=== PATIENT | female | born 1980 | race Caucasian/White ===

== ENCOUNTER 2019-05-15 12:45 | Outpatient (CLI) | payer OTHER ==
--- NOTE | 2019-05-15 14:39 | MRI Report ---
Reason: CERVICALGIA Procedure Date: 05/15/2019 Accession Number: [id number] Procedure: MRI - Cervical Spine W/O CPT Code: Final Report FULL RESULT: EXAM: MRI CERVICAL SPINE WITHOUT CONTRAST EXAM DATE: 05/15/2019 01:49 PM. CLINICAL HISTORY: CERVICALGIA. COMPARISONS: None. TECHNIQUE: Multiplanar, multisequence T1-weighted and fluid-sensitive sequences of the cervical spine without contrast. Other: None. FINDINGS: Neurologic Structures: The visualized posterior fossa structures are unremarkable. No signal abnormality in the visualized spinal cord. Alignment: No scoliosis or spondylolisthesis. Bone Marrow: No gross fractures or bone lesions. No marrow edema. Interspace Levels/Facets: C1-C2: Unremarkable. C2-C3: Unremarkable. C3-C4: Unremarkable. C4-C5: There is a slight disk bulge. No central canal or neural foraminal narrowing. C5-C6: There is a mild disk bulge. There is mild central canal narrowing. No neural foraminal narrowing. C6-C7: There is a slight disk bulge. There is mild central canal narrowing. No neural foraminal narrowing. C7-T1: Unremarkable. Musculature: Normal. No edema or fatty atrophy. Other: The paravertebral and prevertebral soft tissues are normal. IMPRESSION: 1. C5-C6 and C6-C7 small disk bulges with mild central canal narrowing. 2. No significant neural foraminal narrowing. RADIA
== END 2019-05-15 12:46 | disposition home or self-care (01) ==
LOC: DI 12:45
PROVIDERS: ATTEND Family Medicine
DX: M50.821 Other cervical disc disorders at C4-C5 level (principal); M48.02 Spinal stenosis, cervical region
CPT/HCPCS: 72141

== ENCOUNTER 2019-06-09 14:55 | Outpatient (CLI) | payer OTHER ==
[2019-06-09] MEDS ORDERED: IOTHALAMATE MEGLUMINE 50 ML VIAL ONE (15:05)
[2019-06-09] MEDS ORDERED: BUFFERED LIDOCAINE 10 ML SYRINGE ONE (15:05)
[2019-06-09] MEDS ORDERED: GADOBUTROL 7.5 MMOL/7.5 ML VIAL ONE ×2 (15:06→17:16)
--- NOTE | 2019-06-09 16:23 | XRAY Report ---
Reason: LT SHOULDER PAIN Procedure Date: 06/09/2019 Accession Number: [id number] / [id number] Procedure: FL - Arthrogram Needle Placement CPT Code: Final Report FULL RESULT: EXAM: LEFT SHOULDER ARTHROGRAPHIC INJECTION WITH FLUOROSCOPIC GUIDANCE EXAM DATE: 06/09/2019 04:01 PM. CLINICAL HISTORY: Left shoulder pain. COMPARISON: None. TECHNIQUE: The risks, benefits, and alternatives of the procedure were discussed with the patient. All questions were answered. Written and verbal consent were obtained. The glenohumeral joint was marked under fluoroscopy and prepped and draped in a sterile manner. Local anesthesia was performed with 1% lidocaine. A 22-gauge needle was then inserted into the glenohumeral joint. 10 mL of a solution containing 25% 1% lidocaine, 25% iodinated contrast, and a 1:200 dilution of gadolinium contrast in sterile saline was then injected. The needle was removed without immediate complication. Other: None. Fluoroscopy Time: 0.3 minutes. Number of Images: 4. FINDINGS: Bones and joints: No fracture or subluxation. Injection: Fluoroscopic images demonstrate needle placement and contrast in the glenohumeral joint. No contrast extravasation outside of the glenohumeral joint. IMPRESSION: Successful fluoroscopically guided arthrographic injection of the shoulder. RADIA
[2019-06-09] MEDS ORDERED: GADOBUTROL 7.5 MMOL/7.5 ML VIAL IVP ONE (16:58)
[2019-06-09] MEDS ORDERED: IOTHALAMATE MEGLUMINE 50 ML VIAL IVP ONE (16:58)
[2019-06-09] MEDS ORDERED: BUFFERED LIDOCAINE 10 ML SYRINGE IU ONE (16:58)
--- NOTE | 2019-06-10 11:26 | MRI Report ---
Reason: LT SHOULDER PAIN Procedure Date: 06/09/2019 Accession Number: [id number] / [id number] Procedure: MRI - Arthrogram Shoulder LT CPT Code: Final Report FULL RESULT: EXAM: LEFT SHOULDER MRI ARTHROGRAM WITH CONTRAST EXAM DATE: 06/09/2019 05:29 PM. CLINICAL HISTORY: Anterior left shoulder pain. Previous injury in 2005. COMPARISON: ARTHROGRAM NEEDLE PLACEMENT 06/09/2019 3:54 PM. TECHNIQUE: Multiplanar, multisequence T1-weighted and fluid-sensitive sequences of the shoulder after an arthrographic injection of dilute gadolinium, dictated under a separate exam. Other: None. FINDINGS: Acromioclavicular Region: The acromion is type II. The acromioclavicular joint is unremarkable. The coracoacromial and coracoclavicular ligaments are intact. Trace amount of fluid which does not contain contrast at the subacromial subdeltoid bursa. Glenohumeral Region: No subluxation. No loose bodies. The articular cartilage is unremarkable. The glenohumeral ligaments and joint capsule are unremarkable. Bone Marrow: No fracture, marrow edema or bone lesions. Labrum: The labrum is unremarkable. Biceps Tendon: The long head of the biceps tendon and biceps anthony are intact. Musculature/Rotator Cuff: There is an approximately 1 cm, high-grade, partial-thickness articular surface tear at the supraspinatus tendon. There is low-grade articular surface fraying of the infraspinatus tendon. The teres minor and subscapularis tendons are unremarkable. No edema or fatty atrophy. Other: The subcutaneous tissues are unremarkable. IMPRESSION: 1. Focal high-grade partial thickness articular surface tear at the supraspinatus tendon. Low-grade articular surface fraying at the infraspinatus tendon. RADIA
== END 2019-06-09 14:56 | disposition home or self-care (01) ==
LOC: DI 14:55
PROVIDERS: ATTEND General Practice
DX: M75.112 Incomplete rotator cuff tear or rupture of left shoulder, not specified as traumatic (principal)
CPT/HCPCS: 23350; 73222; 77002; A9585; Q9961

== ENCOUNTER 2019-09-24 10:58 | Emergency (ER) | payer OTHER ==
[2019-09-24] MEDS ORDERED: SODIUM CHLORIDE 0.9% 1,000 ML IV STA (11:34)
[2019-09-24 11:46] LABS: BASOPHILS % (AUTO) 0.7 %; EOSINOPHILS # (AUTO) 0.1 10^3/uL (0.0-0.7); EOSINOPHILS % (AUTO) 2.2 %; HGB - HEMOGLOBIN 13.9 g/dL (12.0-16.0); LYMPHOCYTES # (AUTO) 1.4 10^3/uL (1.5-3.5); MEAN CORPUSCULAR HEMOGLOBIN 32.4 pg (27.0-31.0); MEAN CORPUSCULAR HGB CONC 33.7 g/dL (32.0-36.0); MEAN CORPUSCULAR VOLUME 96.3 fL (81.0-99.0); MEAN PLATELET VOLUME 10.4 fL (7.9-10.8); MONOCYTES # (AUTO) 0.3 10^3/uL (0.0-1.0); MONOCYTES % (AUTO) 4.8 %; NEUTROPHILS # (AUTO) 3.9 10^3/uL (1.5-6.6); PLT - PLATELET COUNT 208 10^3/uL (130-450); RED BLOOD COUNT 4.29 10^6/uL (4.20-5.40); RED CELL DISTRIBUTION WIDTH 11.9 % (12.0-15.0); WHITE BLOOD COUNT 5.8 x10^3/uL (4.8-10.8)
--- NOTE | 2019-09-24 11:46 | ED Physician Documentation ---
History of Present Illness - Stated complaint Stated Complaint: CHEST PX/SOA - Chief complaint Chief Complaint: Cardiac - History obtained from History obtained from: Patient - Additonal information Additional information: Patient comes emergency department complaining of left-sided chest pain that is been going on for about the last 4 weeks, but worsening over the last 2 weeks. Patient states that she always has the pain, but that it seems to get worse when she exercises. She states she does not feel as though it is a mechanical pain but more of a pain that she cannot touch. Patient states that she feels somewhat short of breath with exercise, as well. Patient is a smoker and states that she always has a cough, and that this does not seem to be any worse than. She does have some sweating at night. Patient also complains of heartburn and states that she has not had much of an appetite over the last month. She is lost 10 pounds because she does not feel like eating. Patient denies any fevers or new chills. She denies any swelling in her calves or pain in the calves. Patient's father just got out of the hospital after having coronary artery stent placement, but patient states that no one in her family has been diagnosed with coronary artery disease in their 40s or younger. Patient denies any nausea or vomiting. She has had ongoing left shoulder and spinal issues, but states that this pain feels different and that her physical therapist told her she should come here and get it checked out. No sick contacts. No other complaints at this time. Review of Systems Ten Systems: 10 systems reviewed and negative Constitutional: reports: Reviewed and negative Eyes: reports: Reviewed and negative Ears: reports: Reviewed and negative Nose: reports: Reviewed and negative Throat: reports: Reviewed and negative Cardiac: reports: Chest pain / pressure Respiratory: reports: Dyspnea GI: reports: Reviewed and negative : reports: Reviewed and negative Skin: reports: Reviewed and negative Musculoskeletal: reports: Reviewed and negative Neurologic: reports: Reviewed and negative Psychiatric: reports: Reviewed and negative Endocrine: reports: Reviewed and negative Immunocompromised: reports: Reviewed and negative PD PAST MEDICAL HISTORY - Past Medical History Past Medical History: Yes Musculoskeletal: Chronic back pain Other Past Medical History: degen disc disease - Present Medications Home Medications: Ambulatory Orders Medication Instructions Recorded Confirmed Hydrocodone/Acetaminophen 1 - 2 each PO Q6H PRN #14 tablet 09/24/19 [Hydrocodon-Acetaminophen 5-325] - Allergies Allergies/Adverse Reactions: Allergies Allergy/AdvReac Type Severity Reaction Status Date / Time erythromycin base Allergy Rash Verified 09/24/19 11:18 sertraline [From Zoloft] Allergy Rash Verified 09/24/19 11:18 tramadol Allergy Rash Verified 09/24/19 11:18 - Social History Does the pt smoke?: Yes Smoking Status: Current every day smoker Does the pt have substance abuse?: Yes Substance Use and Type: Marijuana PD ED PE NORMAL - Vitals Vital signs reviewed: Yes - General General: Alert and oriented X 3, No acute distress, Well developed/nourished - HEENT HEENT: Atraumatic, PERRL, EOMI, Moist mucous membranes - Neck Neck: Supple, no meningeal sign - Cardiac Cardiac: RRR, No murmur, Strong equal pulses - Respiratory Respiratory: No respiratory distress, Clear bilaterally - Abdomen Abdomen: Soft, Non tender, Non distended - Derm Derm: Normal color, Warm and dry, No rash - Extremities Extremities: No deformity, Normal ROM s pain, No edema, No calf tenderness / cord - Neuro Neuro: Alert and oriented X 3, Other (Grossly intact) - Psych Psych: Normal mood, Normal affect Results - Vitals Vitals: Oxygen O2 Source Room air - EKG (time done) 1107 Rate: Rate (enter#) (72) Rhythm: NSR [place]: Normal Intervals: Normal [place] QRS: Normal Ischemia: Normal ST segments. No: T wave inversion Compare to prior EKG: Old EKG unavailable Computer interpretation: Agree with computer - Labs Labs: Laboratory Tests 09/24/19 09/24/19 09/24/19 11:18 11:18 11:18 WBC 5.8 RBC 4.29 Hgb 13.9 Hct 41.3 MCV 96.3 MCH 32.4 H MCHC 33.7 RDW 11.9 L Plt Count 208 MPV 10.4 Neut # (Auto) 3.9 Lymph # (Auto) 1.4 L [place] # (Auto) 0.3 Eos # (Auto) 0.1 Baso # (Auto) 0.0 Absolute Nucleated RBC 0.00 Nucleated RBC % 0.0 PT 13.4 H INR 1.2 D-Dimer 215.1 Sodium 137 Potassium 4.0 Chloride 101 Carbon Dioxide 27 Anion Gap 9.0 BUN 13 Creatinine 0.9 Estimated GFR (MDRD) 70 L Glucose 101 H Calcium 9.0 Total Bilirubin 0.9 AST 17 ALT 21 Alkaline Phosphatase 42 Troponin I High Sens Total Protein 7.4 Albumin 4.5 Globulin 2.9 Albumin/Globulin Ratio 1.6 Lipase 27 09/24/19 11:18 WBC RBC Hgb Hct MCV MCH MCHC RDW Plt Count MPV Neut # (Auto) Lymph # (Auto) [place] # (Auto) Eos # (Auto) Baso # (Auto) Absolute Nucleated RBC Nucleated RBC % PT INR D-Dimer Sodium Potassium Chloride Carbon Dioxide Anion Gap BUN Creatinine Estimated GFR (MDRD) Glucose Calcium Total Bilirubin AST ALT Alkaline Phosphatase Troponin I High Sens 2.4 Total Protein Albumin Globulin Albumin/Globulin Ratio Lipase - Rads (name of study) CXR Radiology: Final report received, EMP read indepedently, See rad report (negative) CTA chest Radiology: Final report received, EMP read indepedently, See rad report (negative) PD MEDICAL DECISION MAKING - ED course Complexity details: reviewed results, re-evaluated patient, considered differential, d/w patient, d/w family ED course: PT was worked up with labs, EKG, and chest x-ray, though she was overall lower risk, and pain did not sound likely to be due to an emergent condition, given the ongoing nature for 4 weeks constantly. The pt was at increased risk of lung cancer, and this was considered, as well as CAD, PTX, PE, and pneumonia, as well as other dxs. Work-up was negative. I d/w pt that she should follow up with her PCP to discuss the possibility of stress test and endoscopy. It is possible that the pain is due to the shoulder and neck issues. We have discussed home management of the sx, as well as the usual indications for return. Departure - Departure Disposition: Home, Self Care Clinical Impression: Chest pain Qualifiers: Chest pain type: unspecified Qualified Code(s): R07.9 - Chest pain, unspecified Condition: Stable Instructions: ED Chest Pain Atypical Unkn Cause Prescriptions: Hydrocodone/Acetaminophen [Hydrocodon-Acetaminophen 5-325] 1 - 2 each PO Q6H PRN #14 tablet PRN Reason: pain Comments: Extensive work-up today has not revealed a cause for your chest pain. Your labs look good, and your chest x-ray was normal. Your CT scan shows no evidence of tumors or any problem in your blood vessels, including a blood clot. Some of the pain may be due to the nerve issues you are having from your spinal and shoulder injuries; however, it is very important that you follow-up with your primary care physician for further evaluation of your appetite changes and weight loss, as well as the increase in chest pain with exercise. You should specifically talk to your doctor about the possibility of having a stress test done and potentially getting referred for endoscopy. Discharge Date/Time: 09/24/19 13:50
[2019-09-24 11:57] LABS: ALBUMIN 4.5 g/dL (3.2-5.5); ALBUMIN/GLOBULIN RATIO 1.6 (1.0-2.2); BILIRUBIN,TOTAL 0.9 mg/dL (0.2-1.0); CREATININE 0.9 mg/dL (0.4-1.0); TOTAL PROTEIN 7.4 g/dL (6.7-8.2)
[2019-09-24 12:05] LABS: INR 1.2 (0.8-1.2); PT - PROTHROMBIN TIME 13.4 secs (9.9-12.6)
--- NOTE | 2019-09-24 12:09 | XRAY Report ---
PROCEDURE: Chest 2 View X-Ray INDICATIONS: cough TECHNIQUE: 2 view(s) of the chest. COMPARISON: None. FINDINGS: Surgical changes and devices: None. Lungs and pleura: No pleural effusions or pneumothorax. Lungs are clear. Mediastinum: Mediastinal contours are normal. Heart size is normal. Bones and chest wall: No suspicious bony abnormalities. Soft tissues appear unremarkable. IMPRESSION: No acute pulmonary process. Reviewed by: Joanie Dash MD on 09/24/2019 12:08 PM PDT Approved by: Joanie Dash MD on 09/24/2019 12:08 PM PDT Station ID: [id number]
[2019-09-24 12:11] LABS: D-DIMER 215.1 ng/mL (200.0-255.0)
[2019-09-24] MEDS ORDERED: IOVERSOL 320 100 ML VIAL IVP ONE ×2 (12:54→13:14)
--- NOTE | 2019-09-24 13:27 | CT Report ---
PROCEDURE: ANGIO CHEST W/WO INDICATIONS: chest pain/SOB/weight-loss CONTRAST: IV CONTRAST: Optiray 320 ml: 53 PO CONTRAST: *NO PO CONTRAST TECHNIQUE: After the administration of intravenous contrast, 2 mm thick sections acquired from the pulmonary api pallavi to the posterior costophrenic angles. 3-dimensional maximum intensity projection (MIP) coronal a nd sagittal reformats were then acquired through the thorax. For radiation dose reduction, the follow ing was used: automated exposure control, adjustment of mA and/or kV according to patient size. COMPARISON: Chest xray 09/24/19 FINDINGS: Image quality: Excellent. Pulmonary arteries: Pulmonary arteries are normal in size, and demonstrate no intraluminal filling d efects to suggest central pulmonary embolism. Lungs and pleura: Lungs are clear. No pleural effusions or pneumothorax. Central and peripheral ai rways are patent. Mediastinum: Heart size is normal, without pericardial effusion. No mediastinal or hilar adenopathy . Thoracic aorta is normal in caliber and enhancement. Esophagus is normal in caliber, without hiat al hernia. Bones and chest wall: No suspicious bony lesions. Ribs and thoracic spine appear intact throughout. The thyroid is normal. No axillary or supraclavicular adenopathy. Abdomen: Visualized upper abdominal solid organs appear normal in the early arterial phase of enhanc ement. IMPRESSION: 1. No acute pulmonary process. Lungs are clear. No pulmonary embolism. Reviewed by: Joanie Dash MD on 09/24/2019 1:26 PM PDT Approved by: Joanie Dash MD on 09/24/2019 1:26 PM PDT Station ID: [id number]
[2019-09-24 13:48] VITALS: BP 112/87
== END 2019-09-24 13:50 | disposition home or self-care (01) ==
LOC: ED 10:58
DX: R07.9 Chest pain, unspecified (principal); F17.200 Nicotine dependence, unspecified, uncomplicated; Z82.49 Family history of ischemic heart disease and other diseases of the circulatory system
CPT/HCPCS: 36415; 71046; 71275; 80053; 83690; 84484; 85025; 85379; 85610; 93005; 99284; 99285; Q9967